=== PATIENT | male | born 2000 | race Caucasian/White ===

== ENCOUNTER 2020-10-15 17:55 | Emergency (ER) | payer OTHER, SELFPAY ==
--- NOTE | ~2020-10-15 | XR_ITS ---
EXAMINATION: XR wrist LT min 3V DATE: 10/15/2020 18:07 INDICATION: Left wrist pain TECHNIQUE: Posteroanterior, ulnar deviation, oblique, and lateral views of the left wrist were obtain ed. COMPARISON: None available FINDINGS: There is soft tissue swelling of the wrist and palm. Bone alignment is normal. There is no fracture. IMPRESSION: 1. Soft tissue swelling without acute osseous abnormality. Reviewed, dictated and finalized at location A.
[2020-10-15 19:00] VITALS: BP 145/82; PULSE 63; RESP 18; TEMP 36.9; O2SAT 97
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
[2020-10-15 20:28] VITALS: BP 130/74; PULSE 55; RESP 16; TEMP 36.6; O2SAT 100
== END 2020-10-15 20:30 | disposition home or self-care (01) ==
PROVIDERS: Emergency Provider Emergency Medicine; PCP Family Medicine
DX: S63.502A Unspecified sprain of left wrist, initial encounter (principal); S66.912A Strain of unspecified muscle, fascia and tendon at wrist and hand level, left hand, initial encounter; V18.4XXA Pedal cycle driver injured in noncollision transport accident in traffic accident, initial encounter; Y93.55 Activity, bike riding
CPT/HCPCS: 73110; 99283

== ENCOUNTER → 2022-01-09 12:14 | Outpatient (CLI) | payer OTHER, MEDICAID, SELFPAY ==
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
== END ==
PROVIDERS: PCP Emergency Medicine; Visit Provider Emergency Medicine
DX: S39.92XA Unspecified injury of lower back, initial encounter (principal); X58.XXXA Exposure to other specified factors, initial encounter
CPT/HCPCS: 72110

== ENCOUNTER 2022-08-26 10:06 | Emergency (ER) | payer OTHER, MEDICAID, SELFPAY ==
--- NOTE | ~2022-08-26 | XR_ITS ---
XR shoulder LT min 2V 08/26/2022 10:47 Indication: Left shoulder pain after fall Procedure: 3 views left shoulder Comparison: No prior studies for comparison. Findings: There is a displaced left middistal clavicular fracture. Acromioclavicular joint intact. Gl enohumeral joint and anatomic alignment. No other fractures. No soft tissue abnormality. Impression: 1: Displaced left clavicular fracture. Reviewed, dictated and finalized at location [] Impression: 1: Displaced left clavicular fracture.
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
[2022-08-26 10:15] VITALS: BP 140/77; PULSE 55; RESP 16; TEMP 36.6; O2SAT 100
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
== END 2022-08-26 11:54 | disposition home or self-care (01) ==
PROVIDERS: Emergency Provider Emergency Medicine; PCP Emergency Medicine
DX: S42.032A Displaced fracture of lateral end of left clavicle, initial encounter for closed fracture (principal); V17.0XXA Pedal cycle driver injured in collision with fixed or stationary object in nontraffic accident, initial encounter; Y93.55 Activity, bike riding
CPT/HCPCS: 72125; 73030; 99284